=== PATIENT | female | born 1940 | race African-American/Black ===

== ENCOUNTER 2017-10-21 12:15 | Inpatient (IN) | payer OTHER, BC ==
[~2017-10-21] VITALS: Ht 165.1 cm; Wt 92.1 kg
--- NOTE | ~2017-10-21 | H ---
[facility] [place] [address] HISTORY AND PHYSICAL Name: TESFAYE PERALTA Room #: 430-P [facility] IN M.R.#: [id number] Admission: 10/21/17 Attend Phys: Francisco J Sweeney MD Discharge: Date of : 42 Report #: [id number] THIS REPORT FOR: //name// CC: Francisco J Palomares DATE OF SERVICE: 10/21/2017 CHIEF COMPLAINT: Abdominal pain, nausea and diarrhea. HISTORY OF PRESENT ILLNESS: The patient is a 76-year-old female who was just hospitalized at [facility] for Clostridium difficile colitis. She finished her oral vancomycin 125 mg q.i.d. few days ago, on 10/18/2017. The patient developed abdominal pain, nausea and diarrhea the last couple of days. The patient presented to the Emergency Room. The patient's evaluation in the Emergency Room has been unremarkable, including blood work, and CT scan of the abdomen that showed no acute findings. The patient is already seen by GI specialist. Ultrasound of the abdomen was also taken, that showed no acute findings. PAST MEDICAL HISTORY: Includes: 1. Diabetes mellitus type 2. 2. GERD. 3. Dyslipidemia. 4. Recent diverticulitis, followed by Clostridium difficile infection, finished oral vancomycin on 10/18/2017. CURRENT MEDICATIONS: Reviewed and documented in the patient's chart. FAMILY HISTORY: Reviewed and not pertinent to the patient's current condition. SOCIAL HISTORY: The patient does not smoke cigarettes and does not drink alcohol. REVIEW OF SYSTEMS: As above in HPI section, all others negative. PHYSICAL EXAMINATION: GENERAL: The patient is an elderly female who is in no apparent distress. She is alert and oriented x 3. VITAL SIGNS: Her blood pressure is 131/47, heart rate is 68, respiration is 20 and temperature is 97.3. HEENT: Pupils are equal. Eye movements are normal. Sclerae are anicteric. NECK: Supple. Thyromegaly is not palpated. RESPIRATORY: Chest moves symmetrically with breathing. The patient has normal respiratory sounds. [facility] [address] [place] [address] HISTORY AND PHYSICAL Name: TESFAYE PERALTA Room #: 430-[facility] IN [facility]#: [id number] Admission: 10/21/17 Attend Phys: Francisco J Sweeney MD Discharge: Date of : 42 Report #: [id number] CARDIOVASCULAR: The patient has regular rhythm and rate. She has no murmurs, gallops or rubs. GASTROINTESTINAL: Abdomen is slightly tender, bilateral lower quadrants. Bowel sounds are present. Organomegaly is not palpated. MUSCULOSKELETAL: The patient has no joint deformities. The patient has no edema, cyanosis or clubbing. NEUROLOGIC: The patient is alert and oriented x 3. Her examination is grossly nonfocal. SKIN: The patient has no skin lesions. Skin is dry and warm. LABORATORY DATA: Basic metabolic profile shows normal electrolytes. Creatinine is 1.5, from normal baseline several years ago. Liver function tests are normal. Bilirubin is normal. On CBC, white count is normal. Hemoglobin is 10.9, that is the patient's chronic baseline. Platelets in the normal range. ASSESSMENT AND PLAN: 1. Recent Clostridium difficile colitis, finished oral vancomycin on 10/18/2017. The patient comes to the hospital with abdominal pain, loose stools, and unremarkable imaging studies. The patient is already seen and evaluated by GI team. Consultation is very much appreciated. The patient is started on PPI. For recurrent diarrhea, stool will be tested for Clostridium difficile. Upper endoscopy as well as lower endoscopy is being considered. 2. Diabetes mellitus type 2, mild. We will hold metformin for now, because creatinine is slightly elevated. Continue IV fluids, and reassess. Treat diabetes with sliding scale insulin for now. 3. Elevated creatinine at 1.5. Acute kidney injury versus chronic kidney stage III. Baseline is not known. Recheck creatinine in the morning. 4. Deep venous thrombosis prophylaxis. SubQ Lovenox. <ELECTRONICALLY SIGNED> By: Francisco J Sweeney MD 10/24/17 1410 1700 1721 Francisco J Sweeney MD /nt
[~2017-10-21 12:15] MED LIST: ASPIRIN EC81 M1 PO; GLUCOPHAGE500 MG PO; HYDROCHLOROTH12.5 MG PO; K-DUR 20 MEQ T20 MEQ PO; LIPITOR80 MG PO; NORCO 5-325 TA1 EACH PO; PHENERGAN 25 MG25 M1 PO; PREVACID; TORADOL 10 MG T10 MG; URECHOLINE 25 M25 MG OR
[2017-10-21 12:21] VITALS: BP 131/47
[2017-10-21 13:50] LABS: HEMATOCRIT 33.6 % (37.0-47.0); HEMOGLOBIN 10.9 gm/dL (12.0-15.0); MCH 27.2 pg (26.0-34.0); MCHC 32.5 g/dL (28.0-37.0); MCV 83.7 fL (80.0-100.0); RBC 4.01 mil/uL (4.20-5.00); RDW 14.8 % (10.5-14.5); WBC 6.5 thou/uL (4.0-11.0)
[2017-10-21 13:59] LABS: CALCIUM 9.5 mg/dL (8.5-10.1); CREATININE 1.5 mg/dL (0.6-1.0); POTASSIUM 3.5 mmol/L (3.5-5.1)
[2017-10-21 14:05] LABS: ALBUMIN 3.3 g/dL (3.4-5.0); TOTAL BILIRUBIN 0.5 mg/dL (<0.1-1.0); TOTAL PROTEIN 7.7 g/dL (6.4-8.2)
[2017-10-21 17:04] VITALS: BP 131/47
[2017-10-21 17:42] LABS: URINE BILIRUBIN NEGATIVE (Negative); URINE BLOOD NEGATIVE (Negative); URINE CLARITY CLEAR; URINE COLOR YELLOW; URINE GLUCOSE-RANDOM* NEGATIVE (Negative); URINE KETONES NEGATIVE (Negative); URINE NITRITE-REFLEX NEGATIVE (Negative); URINE PROTEIN (DIPSTICK) NEGATIVE (Negative); URINE SPECIFIC GRAVITY <= 1.005 (1.005-1.035); URINE UROBILINOGEN 0.2 E.U./dl (0.2-1.0)
[2017-10-21 17:45] LABS: URINE LEUKOCYTES-REFLEX 1+ (Negative)
[2017-10-21 17:52] LABS: SQUAMOUS 0-3 Few /LPF (0-3); URINE WBC-REFLEX 6-15 Few /HPF (0-5)
[2017-10-21 17:53] LABS: BACTERIA-REFLEX 1-9 Few /HPF (None Seen); CASTS None Seen /LPF (None Seen); CRYSTALS None Seen /LPF (None Seen); URINE RBC None Seen /HPF (0-2)
[2017-10-21 18:00] VITALS: BP 130/67
[2017-10-21 18:17] VITALS: BP 117/55
[2017-10-21 19:40] VITALS: BP 149/59
[2017-10-22 03:59] VITALS: BP 131/44
[2017-10-22 04:30] LABS: BASOPHILS 0.8 % (0.0-2.0); EOSINOPHILS 2.7 % (0.0-3.0); LYMPHOCYTES 25.1 % (24.0-44.0); MCH 27.4 pg (26.0-34.0); MCHC 32.5 g/dL (28.0-37.0); MCV 84.3 fL (80.0-100.0); MONOCYTES 9.5 % (1.0-8.0); PLATELET COUNT 258 thou/uL (150-400); POLYS 61.9 % (36.0-66.0); RBC 3.67 mil/uL (4.20-5.00); RDW 15.3 % (10.5-14.5); WBC 4.9 thou/uL (4.0-11.0)
[2017-10-22 04:44] LABS: CALCIUM 8.6 mg/dL (8.5-10.1); CREATININE 1.3 mg/dL (0.6-1.0); POTASSIUM 3.6 mmol/L (3.5-5.1)
[2017-10-22 07:40] VITALS: BP 130/54
[2017-10-22 16:10] VITALS: BP 138/71
[2017-10-22 20:30] VITALS: BP 139/62
[2017-10-23 04:43] VITALS: BP 151/76
[2017-10-23 04:48] LABS: ABSOLUTE NEUTROPHILS 3.5 thou/uL (1.4-8.2); BASOPHILS 1.1 % (0.0-2.0); EOSINOPHILS 4.7 % (0.0-3.0); HEMATOCRIT 29.8 % (37.0-47.0); HEMOGLOBIN 9.9 gm/dL (12.0-15.0); LYMPHOCYTES 24.6 % (24.0-44.0); MCHC 33.2 g/dL (28.0-37.0); MCV 84.6 fL (80.0-100.0); MONOCYTES 8.8 % (1.0-8.0); PLATELET COUNT 256 thou/uL (150-400); POLYS 60.8 % (36.0-66.0); RBC 3.53 mil/uL (4.20-5.00); RDW 15.1 % (10.5-14.5); WBC 5.7 thou/uL (4.0-11.0)
[2017-10-23 05:08] LABS: CALCIUM 8.5 mg/dL (8.5-10.1); CREATININE 1.3 mg/dL (0.6-1.0); POTASSIUM 3.7 mmol/L (3.5-5.1)
[2017-10-23 08:00] VITALS: BP 153/67
[2017-10-23 16:45] VITALS: BP 142/66
[2017-10-23 20:00] VITALS: BP 127/40
[2017-10-24 04:00] VITALS: BP 140/62
[2017-10-24 06:33] LABS: BASOPHILS 0.6 % (0.0-2.0); EOSINOPHILS 5.2 % (0.0-3.0); HEMATOCRIT 30.5 % (37.0-47.0); HEMOGLOBIN 9.8 gm/dL (12.0-15.0); LYMPHOCYTES 27.4 % (24.0-44.0); MCH 27.2 pg (26.0-34.0); MCHC 32.2 g/dL (28.0-37.0); MCV 84.4 fL (80.0-100.0); MONOCYTES 9.3 % (1.0-8.0); PLATELET COUNT 250 thou/uL (150-400); POLYS 57.5 % (36.0-66.0); RBC 3.61 mil/uL (4.20-5.00); RDW 15.2 % (10.5-14.5); WBC 5.2 thou/uL (4.0-11.0)
[2017-10-24 06:40] LABS: CALCIUM 8.6 mg/dL (8.5-10.1); CREATININE 1.3 mg/dL (0.6-1.0); POTASSIUM 3.5 mmol/L (3.5-5.1)
[2017-10-24 08:36] VITALS: BP 119/52
[2017-10-24 12:07] LABS: ALBUMIN 2.8 g/dL (3.4-5.0); DIRECT BILIRUBIN < 0.1 mg/dL (<0.1-0.3); SGOT 19 U/L (15-37); SGPT 14 U/L (30-65); TOTAL BILIRUBIN 0.4 mg/dL (<0.1-1.0); TOTAL PROTEIN 6.6 g/dL (6.4-8.2)
[2017-10-24] MEDS ORDERED: DIPHENHIST25 M1 PO (14:55)
[2017-10-24] MEDS ORDERED: ZOFRAN ODT4 MG PO (14:55)
[2017-10-24 16:00] VITALS: BP 119/52
[2018-04-29] MEDS ORDERED: VICODIN 5-3001 EACH PO (10:17)
== END 2017-10-24 18:27 | disposition home or self-care (01) | DRG 73 ==
LOC: ER 12:15 → EDBD 12:15 → ER 12:15 → 4E 15:42 → EROBS 15:42 → 4E 18:01
PROVIDERS: Emergency Medicine; Internal Medicine; Internal Medicine Endocrinology, Diabetes & Metabolism; Nurse Practitioner
DX: E11.43 Type 2 diabetes mellitus with diabetic autonomic (poly)neuropathy (principal); E43 Unspecified severe protein-calorie malnutrition; N17.9 Acute kidney failure, unspecified; I10 Essential (primary) hypertension; E78.5 Hyperlipidemia, unspecified; E11.9 Type 2 diabetes mellitus without complications; E78.00 Pure hypercholesterolemia, unspecified; K59.00 Constipation, unspecified; K21.9 Gastro-esophageal reflux disease without esophagitis; Z79.899 Other long term (current) drug therapy; Z88.5 Allergy status to narcotic agent; Z88.8 Allergy status to other drugs, medicaments and biological substances; Z90.710 Acquired absence of both cervix and uterus
CPT/HCPCS: 10084